=== PATIENT | male | born 1960 | race Caucasian/White ===

== ENCOUNTER 2017-09-04 18:13 | Emergency (ER) | payer SELFPAY | END 2017-09-04 19:15 | disposition home or self-care (01) | LOC: ERS 18:13 | DX: K04.7 Periapical abscess without sinus (principal); F17.210 Nicotine dependence, cigarettes, uncomplicated | CPT/HCPCS: 41800 ==

== ENCOUNTER 2021-09-25 21:02 | Emergency (ER) | payer SELFPAY ==
[2021-09-25] MEDS ORDERED: Lidocaine 1% w/Epinephrine 1:100K 20 ML VIAL ONE (21:16)
== END 2021-09-25 21:57 | disposition home or self-care (01) ==
LOC: ERS 21:02
DX: L72.3 Sebaceous cyst (principal); F17.210 Nicotine dependence, cigarettes, uncomplicated
CPT/HCPCS: 10061

== ENCOUNTER 2021-09-27 17:09 | Emergency (ER) | payer SELFPAY | END 2021-09-27 18:40 | disposition left against medical advice (07) | LOC: ERS 17:09 | DX: Z53.21 Procedure and treatment not carried out due to patient leaving prior to being seen by health care provider (principal) ==

== ENCOUNTER 2021-09-27 21:36 | Emergency (ER) | payer SELFPAY | END 2021-09-27 22:00 | disposition home or self-care (01) | LOC: ERS 21:36 | DX: Z48.817 Encounter for surgical aftercare following surgery on the skin and subcutaneous tissue (principal); I10 Essential (primary) hypertension | CPT/HCPCS: 99282 ==

== ENCOUNTER 2021-09-29 22:51 | Emergency (ER) | payer SELFPAY | END 2021-09-29 23:57 | disposition home or self-care (01) | LOC: ERS 22:51 | DX: Z48.817 Encounter for surgical aftercare following surgery on the skin and subcutaneous tissue (principal); I10 Essential (primary) hypertension | CPT/HCPCS: 99282 ==

== ENCOUNTER 2021-10-04 14:57 | Emergency (ER) | payer SELFPAY | END 2021-10-04 16:00 | disposition home or self-care (01) | LOC: ERS 14:57 | DX: Z48.817 Encounter for surgical aftercare following surgery on the skin and subcutaneous tissue (principal); F17.210 Nicotine dependence, cigarettes, uncomplicated | CPT/HCPCS: 99282 ==

== ENCOUNTER 2021-10-06 13:59 | Emergency (ER) | payer SELFPAY | END 2021-10-06 14:43 | disposition home or self-care (01) | LOC: ERS 13:59 | DX: Z48.817 Encounter for surgical aftercare following surgery on the skin and subcutaneous tissue (principal); F17.210 Nicotine dependence, cigarettes, uncomplicated | CPT/HCPCS: 99282 ==